=== PATIENT | female | born 1955 | race Caucasian/White ===

== ENCOUNTER → 2017-01-13 | Outpatient (CLI) | payer BC ==
[~2017-01-13] MED LIST: ALLERGY RELIEF10 M1; GARLIC500 M1; NAPROSYN375 MG; OMEGA 3-6-9 11200 MG; VITAMIN C1000 M2; VITAMIN D 22000 UNIT; VITAMIN E400 UNI2
--- NOTE | ~2017-01-13 | NM22 ---
[facility] A Service of [facility] & [facility] / [facility] RADIOLOGY TEXT RESULTS PATIENT: LISETTE LEDEZMA LOCATION: [facility] : 55 UNIT #: [id number] AGE: [address]: Ar Ott MD SEX: F ORDER DR: [id number] [facility] [address] [place], [place] [address] [id number] O MR#: [id number] Acc #: [id number] NAME: LISETTE LEDEZMA : 1955 SEX: F STUDY DATE/TIME: 01/13/2017 10:17 UNIT: [facility] ROOM: STUDY DESCRIPTION: XU Hepatobiliary W GB Pharm Attending Physician: Ar Ott M.D. Referring Physician: Ar Ott M.D. Ordering Physician: Ar Ott M.D. Primary Care Physician: Renee Young M.D. MEDICAL IMAGING REPORT This report is preliminary unless electronic signature is present EXAM Radionuclide biliary scan January 13, 2017 HISTORY Epigastric pain. 2 years epigastric pain, nausea, acid reflux, bloating. Extra gassy gastritis. Worsened last 6 months. FINDINGS Following intravenous administration of 4.96 mCi technetium 99m Choletec, static images of the abdomen were obtained at 15-minute intervals over 60 minutes. Patient then received 1.3 mcg Kinevac by intravenous infusion. Images obtained before and after 30-minute Kinevac infusion. Region of interest drawn around gallbladder and gallbladder ejection fraction calculated. Homogeneous distribution of radiotracer throughout the liver at 15 minutes post administration. Radiotracer seen in common bile duct 15 minutes post administration, in gallbladder at 30 minutes post administration and clearly seen within small bowel at 45 minutes post administration. During initial hour of study radiotracer accumulates in the gallbladder and small bowel. With intravenous administration of Kinevac, the 30-minute ejection fraction is 91.1%. Normal is greater than or equal to 30%. No evidence of acute cholecystitis or cystic duct obstruction. Dictated by... Jason Berrios M.D. THIS IS AN ELECTRONICALLY VERIFIED REPORT Jason Berrios M.D. at 01/14/2017 9:39 PM YAW/brit TD: 01/13/2017 15:28 JOB #: [id number] [facility] A Service of [facility] RADIOLOGY TEXT RESULTS PATIENT: LISETTE LEDEZMA LOCATION: [facility] #: [id number] : 55 UNIT #: [id number] AGE: [address]: Ar Ott MD SEX: F ORDER DR: MEDICAL IMAGING REPORT Page 1 of 1 COPY
== END | disposition home or self-care (01) ==
LOC: CNUC 09:18
DX: R10.13 Epigastric pain (principal); R11.0 Nausea
CPT/HCPCS: 78227; A9537; J2805